=== PATIENT | male | born 1985 | race Caucasian/White ===

== ENCOUNTER → 2017-05-08 | Outpatient (CLI) | payer BC ==
--- NOTE | 2017-05-08 23:41 | PN ---
PROGRESS NOTE DATE OF SERVICE: 05/08/2017 This patient is a 31-year-old gentleman who has been followed in the sleep center for treatment of obstructive sleep apnea-hypopnea syndrome. Patient's weight has increased since his previous visit by 5 pounds. He continues to use his CPAP equipment successfully. I checked his CPAP unit. Usage is 25 out of 30 nights for more than 4 hours; average 5.6 hours. [place] Sleepiness Scale is 7. Sometimes the patient snores with the machine. MEDICATIONS: Alexandra. PHYSICAL EXAM: Patient is in no distress. VITAL SIGNS: BP 132/75, HR 60, RR 16, height 70-1/2, weight 219, BMI 30.9. Neck 16-1/4 inches in circumference. Temperature 98.1. Oxygen saturation on room air 97%. HEENT: PERRLA, EOMI. Evaluation of oropharynx showed tongue protrudes midline. Moderately low position of soft palate. NECK: Supple. No JVD. Thyroid is not palpable. LUNGS: Clear to percussion and to auscultation. Good air exchange. No wheezing or rhonchi. HEART: S1, S2 with some irregularities. Slight systolic murmur. ABDOMEN: Slightly obese. EXTREMITIES: No clubbing or cyanosis. SILVERWARE BUFFER: Awake, alert and oriented x3. Cranial nerves 2 to 7 intact. There is no fasciculation or atrophy noted. No focal deficits observed. IMPRESSION: 1. Severe obstructive sleep apnea-hypopnea syndrome. The patient demonstrated very good compliance with treatment, benefitting from treatment. 2. Patient's weight has increased by 5 pounds. Sometimes he has snoring while using his CPAP. 3. Mild obesity; BMI 30.9. 4. Allergies. 5. Status post pilonidal cyst removal. 6. Status post ACL surgery on the left knee. PLAN: 1. I will increase pressure to 9 cm of water. 2. Losing weight. 3. Sleep hygiene with regular time in bed for at least 8 hours. 4. No driving if feeling any sleepiness. 5. Prescription for all necessary CPAP supplies, including nasal pillow, mask, tube, filters. Thank you very much for allowing me to participate in the management of your patient. Sincerely, Bernabe Lewis MD, PhD, FAASM Diplomat of [employer] [employer] [employer] Seat Cover Cutter of [facility] [place] MMODL / CHEMO: [id number] /
== END | disposition home or self-care (01) ==
LOC: SLEEP 16:06
PROVIDERS: ATTEND Internal Medicine
DX: G47.33 Obstructive sleep apnea (adult) (pediatric) (principal); E66.9 Obesity, unspecified; Z68.30 Body mass index [BMI] 30.0-30.9, adult; T78.40XA Allergy, unspecified, initial encounter; Z98.890 Other specified postprocedural states; Z79.899 Other long term (current) drug therapy

== ENCOUNTER → 2018-08-13 | Outpatient (CLI) | payer OTHER ==
--- NOTE | 2018-08-13 19:36 | PN ---
PROGRESS NOTE DATE OF SERVICE: 08/13/2018 This patient is a 33-year-old gentleman who has been followed in the sleep center for treatment of obstructive sleep apnea-hypopnea syndrome. Patient continues to use his CPAP equipment every night for the whole night without any significant technical problems related to the mask, machine or humidification. The patient recently developed more snoring while using his CPAP equipment and he developed sleepiness during the day. [place] Sleepiness Scale today is increased at 11. During his previous visit, [place] Sleepiness Scale was 7. The patient's weight has increased by 26 pounds compared to his weight when we did the sleep study in 2013. Highest CPAP pressure which we tried at that time was 8 cm of water. Last year I increased pressure to 9 cm of water. I checked patient's CPAP unit. Usage is 29/30 nights for more than 4 hours, which indicates great compliance. MEDICATIONS: Alexandra. PHYSICAL EXAMINATION: GENERAL: A pleasant patient in no distress. VITAL SIGNS: BP 148/79, HR 84, RR 18, height 5 feet 10-1/4 inches, weight 228.0 pounds, body mass index 32.5, temperature 98.5, oxygen saturation at room air 96%. HEENT: PERRLA, EOMI. Evaluation of oropharynx showed tongue protrudes midline. Moderately low position of soft palate. NECK: Supple. No JVD. Thyroid is not palpable. LUNGS: Clear to percussion and to auscultation. Good air exchange. No wheezing or rhonchi. HEART: S1, S2 regular. No murmurs, gallops or rubs. ABDOMEN: Soft and nontender. Bowel sounds are present. No organomegaly. EXTREMITIES: No clubbing or cyanosis. POUNCING MACHINE OPERATOR: Awake, alert, and oriented X3. Cranial nerves 2 to 7 intact. There is no fasciculation or atrophy. noted. No focal deficits observed. IMPRESSION: 1. Severe obstructive sleep apnea-hypopnea syndrome. Patient has demonstrated great compliance with treatment, benefitting from treatment, but he developed snoring and sleepiness during the day while treatment with CPAP. 2. Mild obesity; body mass index 32.5. Patient's weight increased by 26 pounds since previous titration. 3. Allergies. 4. Status post pilonidal cyst removed. 5. Status post ACL surgery in the left knee. PLAN: 1. We will repeat CPAP titration for re-evaluation of effective CPAP pressure with the patient's increased weight of 26 pounds and after he has developed snoring and daytime sleepiness. 2. Sleep hygiene with regular time in bed for at least 8 hours. 3. No driving if feeling any sleepiness. 4. Watching and losing weight. Thank you very much for allowing me to participate in the management of your patient. Sincerely, Bernabe Lewis MD, PhD, FAASM Diplomat of [employer] [employer] City Collector [facility] [employer] MMODL / IJN: [id number] /
== END | disposition home or self-care (01) ==
LOC: SLEEP 15:38
PROVIDERS: ATTEND Internal Medicine
DX: G47.33 Obstructive sleep apnea (adult) (pediatric) (principal); E66.9 Obesity, unspecified; Z68.32 Body mass index [BMI] 32.0-32.9, adult; Z99.89 Dependence on other enabling machines and devices; Z98.890 Other specified postprocedural states; Z79.899 Other long term (current) drug therapy

== ENCOUNTER → 2018-09-09 | Outpatient (CLI) | payer OTHER ==
--- NOTE | 2018-09-09 17:55 | PN ---
PROGRESS NOTE DATE OF SERVICE: 09/09/2018 This patient is a 33-year-old gentleman who has been followed in Sleep Center for treatment of obstructive sleep apnea-hypopnea syndrome. During his previous visit CPAP pressure in his machine was 8 cm of water. The patient complained of snoring and excessive daytime sleepiness. I changed pressure in the machine to 9 cm of water and the patient came to Sleep Center for re-evaluation of effective CPAP pressure in his machine. During the CPAP titration, the highest pressure was 11 cm of water. Today at the pressure 9 cm of water patient again reported symptoms of excessive daytime sleepiness. [place] Sleepiness Scale is 17 and he still has snoring. His CPAP unit was not adjusted since titration was done. I checked it today and CPAP pressure is 9. For the last month patient has used the machine 27/30 nights for more than 4 hours with average usage 6 hours, which is good compliance. The patient's CPAP unit does not have information about apnea-hypopnea index. MEDICATIONS: Alexandra. PHYSICAL EXAMINATION: GENERAL: A pleasant 33-year-old gentleman without distress. VITAL SIGNS: BP 111/76, HR 83, RR 16, temperature 98.0, oxygen saturation at room air 96%. Height is 5 feet 10-3/4 inches, weight 233, body mass index 33.2. HEENT: PERRLA, EOMI. Evaluation of oropharynx showed tongue protrudes midline. Moderately low position of soft palate. NECK: Supple. No JVD. Thyroid is not palpable. LUNGS: Clear to percussion and to auscultation. Good air exchange. No wheezing or rhonchi. HEART: S1, S2 regular. No murmurs, gallops or rubs. ABDOMEN: Soft and nontender. Bowel sounds are present. No organomegaly. EXTREMITIES: No clubbing or cyanosis. NEWS CLIPPING CUTTER: Awake, alert, and oriented X3. Cranial nerves 2 to 7 intact. There is no fasciculation or atrophy. noted. No focal deficits observed. IMPRESSION: 1. Severe obstructive sleep apnea-hypopnea syndrome. Patient demonstrated good compliance with treatment but he still has snoring and excessive daytime sleepiness on CPAP pressure 9 cm of water. 2. Mild obesity; body mass index 33.2. Patient's weight has continued to increase. 3. Allergies. 4. Status post ACL surgery on the left knee. 5. Status post pilonidal cyst removed. PLAN: 1. I adjusted patient's CPAP unit up to 11 cm of water. 2. Patient will continue to use CPAP equipment every night for the whole night. 3. Losing weight. 4. Sleep hygiene with regular time in bed for at least 8 hours. 5. No driving if feeling any sleepiness. Thank you very much for allowing me to participate in the management of your patient. Sincerely, Bernabe Lewis MD, PhD, FAASM Diplomat of [employer] [place] [employer] [place] [employer] Coin Rolling Machine Operator of [facility] [place] MMODL / ARUNN: [id number] /
== END ==
LOC: SLEEP 16:05
PROVIDERS: ATTEND Internal Medicine
DX: G47.33 Obstructive sleep apnea (adult) (pediatric) (principal); E66.9 Obesity, unspecified; T78.40XA Allergy, unspecified, initial encounter; Z98.890 Other specified postprocedural states; Z68.33 Body mass index [BMI] 33.0-33.9, adult; Z99.89 Dependence on other enabling machines and devices; Z79.899 Other long term (current) drug therapy